=== PATIENT | female | born 1985 | race African-American/Black ===

== ENCOUNTER 2016-07-08 20:21 | Emergency (ER) | payer MEDICAID ==
[~2016-07-08 20:21] MED LIST: ABILIFY PO; ANTIBIOTIC PO; BENTYL20 MG PO; BUSPIRONE; BUSPIRONE HCL10 M2 PO; CLONIDINE PO; HYDROXYZINE PA100 M1 PO; LAMICTAL PO; LAMICTAL100 M2 PO; LATUDA80 M1 PO; NORCO 5-325 TA1 EACH PO; NORCO 5/325 TAB1 TAB PO; NORCO 5/3251 TAB PO; OMEPRAZOLE PO; OMEPRAZOLE20 M3 PO; PERCOCET 5-3251 EACH PO; REXULTI4 MG PO; VITAMIN D1000 UNIT PO; XARELTO20 M1 PO; ZOLOFT50 M1 PO
[2016-07-08] MEDS ORDERED: ZANAFLEX4 M2 PO (20:30)
[2016-07-08] MEDS ORDERED: DEPAKOTE ER250 M1 PO (20:30)
[2016-07-08] MEDS ORDERED: OMEPRAZOLE40 M2 PO (20:30)
[2016-07-08] MEDS ORDERED: CIPRODEX OTIC7.5 M1 LEFT EAR (21:20)
[2016-07-08] MEDS ORDERED: NORCO 5-325 TA1 EACH PO (21:20)
[2016-12-26] MEDS ORDERED: PRENATAL-U CAPS1 CAP PO (19:00)
[2016-12-26] MEDS ORDERED: ZANTAC150 M1 PO (19:00)
[2016-12-26] MEDS ORDERED: VITAMIN D5000 UNI2 PO (19:00)
[2016-12-26] MEDS ORDERED: LATUDA20 M1 PO (19:01)
[2016-12-26] MEDS ORDERED: FLAGYL500 M1 PO (19:01)
[2016-12-26] MEDS ORDERED: PROBIOTIC1 EA10 PO (19:02)
[2016-12-26] MEDS ORDERED: NORCO 5-325 TA1 EACH PO (20:43)
== END 2016-07-08 21:27 ==
LOC: EDMED 20:21
DX: H60.312 Diffuse otitis externa, left ear (principal); I10 Essential (primary) hypertension; G40.909 Epilepsy, unspecified, not intractable, without status epilepticus; Z79.899 Other long term (current) drug therapy; F17.210 Nicotine dependence, cigarettes, uncomplicated

== ENCOUNTER 2016-07-09 18:16 | Emergency (ER) | payer MEDICAID ==
[~2016-07-09 18:16] MED LIST changes: +CIPRODEX OTIC7.5 M1 LEFT EAR; +DEPAKOTE ER250 M1 PO; +OMEPRAZOLE40 M2 PO; +ZANAFLEX4 M2 PO
[2016-12-26] MEDS ORDERED: VITAMIN D5000 UNI2 PO (19:00)
[2016-12-26] MEDS ORDERED: ZANTAC150 M1 PO (19:00)
[2016-12-26] MEDS ORDERED: PRENATAL-U CAPS1 CAP PO (19:00)
[2016-12-26] MEDS ORDERED: FLAGYL500 M1 PO (19:01)
[2016-12-26] MEDS ORDERED: LATUDA20 M1 PO (19:01)
[2016-12-26] MEDS ORDERED: PROBIOTIC1 EA10 PO (19:02)
[2016-12-26] MEDS ORDERED: NORCO 5-325 TA1 EACH PO (20:43)
== END 2016-07-09 20:04 | disposition left against medical advice (07) ==
LOC: EDMED 18:16
DX: H92.02 Otalgia, left ear (principal); Z53.21 Procedure and treatment not carried out due to patient leaving prior to being seen by health care provider